=== PATIENT | female | born 1995 | race Two or more races ===

== ENCOUNTER 2025-02-27 13:34 | Outpatient (AMB) | payer BC, SELFPAY ==
[2025-02-27 13:52] VITALS: BP 117/80; PULSE 92; RESP 17; TEMP 36.6; O2SAT 98; BMI 30.2
--- NOTE | 2025-02-27 13:52 | AMB.OBINITIA ---
Vital Signs 02/27/25 13:52 Height 1.57 m Height Method Measured Weight 74.843 kg Weight Measurement Method Standing Scale BMI 30.2 BP 117/80 Blood Pressure Source Automatic Cuff Blood Pressure Location Right Upper Arm Position Sitting Respiration 17 Pulse 92 Pulse Source Monitor Temp 97.8 F Temp Source Temporal Artery Scan Pulse Oximetry (%) 98 Oxygen Delivery Method Room Air Allergies/Home Meds Allergies & Medications Allergies No Known Allergies Allergy (Verified 02/27/25 13:53) Medication Reconciliation vits no.130-ferrous fum 27 mg iron-folic acid 800 mcg tablet ( Vitamin) 1 tab PO QDAY pregancy #60 tabs 02/27/25 [Rx] Intake Visit Data Collection New Patient or Established: New Patient (never been to [facility]) Reason for Visit:: OBI Consent obtained for Telemed Visit: No Seen by Clinical Staff ONLY (RN/MA): No Print Support Specialist Required: No Do You Feel Safe at Home: Yes Authorities Contacted: N/A PCP or OBGYN visit in last 3 months: No Hx Now: Yes Are you currently on any form of Control: No Last menstrual period: 12/17/24 Pain Present Currently: No Pain Scale Used: Mayen-Rebollar/Numerical Pain scale:: 0 Smoking Status Smoking Status: Never smoker Questionnaires Covid-19 Vaccine Questionnaire Has patient been vacinated for Covid-19 Have you been vacinated for Covid-19: Yes PHQ-9 PHQ-2 Over the last 2 weeks, how often have you been bothered by any of the following problems? 1. Little interest or pleasure in doing things: not at all 2. Feeling down, depressed, or hopeless: not at all Total score: 0 PHQ-9 3. Trouble falling or staying asleep, or sleeping too much: Not at all 4. Feeling tired or having little energy: Not at all 5. Poor appetite or overeating: Not at all 6. Feeling bad about yourself - or that you are a failure or have let yourself or your family down: Not at all 7. Trouble concentrating on things, such as reading the newspaper or watching television: Not at all 8. Moving or speaking so slowly that other people could have noticed? - Or the opposite - being so fidgety or restless that you have been moving around a lot more than usual: not at all 9. Thoughts that you would be better off or of hurting yourself in some way: Not at all Total score: 0 If you checked off any problems, how difficult have these problems made it for you to do your work, take care of things at home, or get along with other people?: not difficult at all Source: Developed by Drs. Speedy Mayen, Angélica Stone, Juan Marie and colleagues, with an educational jovani from [employer]. Social History Living Situation History Lives With: Family Housing: House Tobacco History Smoking Status: Never smoker Alcohol History Alcohol Intake: Never Domestic Abuse History Do You Feel Safe at Home: Yes History of Present Illness HPI Narrative 29-year-old 2 para 1 for OBI. Plan . Last period December 17, 2024. Estimated due date September 23, 2025. She has good dates. Both her and partner are happy about the . Patient has had some spotting in early but that stopped. She now has some resolving hyperemesis. Patient was vomiting up to 5 or 6 times a day and she lost 10 pounds. She went into the ER a week ago and was treated with Reglan 10 mg 30 minutes before each meal and then she takes Diclegis at night. And this has been helping her a lot. Denies any history of chronic illness. She has a previous history of vaping marijuana but she stopped that and no surgeries. Denies leaking or cramps at this time. OB Initial Visit OB Flowsheet OB Flowsheet Initial Weight: Not Recorded Date <del>?</del> EGA Weight BP Alb Glu CTX Pres Fundal ht FHR Mov Dilation Station Effacement Hx Notes Visit Note 02/27/25 <del>?</del> 10w 2d 74.843 kg 117/80 absent unknown 10 160 absent 29-year-old 2 para 1 for OBI. Patient's last period December 17, 2024. This gives a due date September 23, 2025. Patient does report low spotting in the first part of but she has had none since. Denies any existing past medical problems. Denies surgeries. She has a history of vaping marijuana prior to beginning the but she stopped. No leaking or bleeding at this time she has hyperemesis with this . She tried Zofran that did not work. She then went to the ER a few weeks ago and they treated her with Reglan to take 30 minutes prior to each meal and then she takes Diclegis at night. This seems to be helping and she is not vomiting anymore. Schedule ultrasound with maternal- medicine. OB panel today with carrier screens and NIPT. Discussed SAB precautions. Discussed comfort measures for nausea and vomiting. And patient should continue with Reglan 10 mg prior to each meal and then her Diclegis at night. I ordered vitamins. Return in 3 weeks OB check Menstrual History Menstrual reliability: approximate (month known) Flow: normal Menstrual regularity: irregular Monthly: Yes Age at menarche: 17 On control pills at conception: No Date of positive home test: 01/21/25 OB History : 2 Para: 1 Hx # Pregnancies: 0 Hx Total # of Abortions (Spontaneous & Elective): 0 # of Living Children: 1 Delivery History 1st : Child's name: CLARE date: 05/27/19 sex: female Gestational age at delivery (weeks): 40 Delivery type: vaginal weight (lbs): 3175.147 g History of depression before or after : No Infection History & Risk Evaluation History of STDs: none HIV risk evaluation: low risk Hepatitis B risk evaluation: low risk Patient or partner has history of Genital Herpes: No Genetic Screening & History Genetic Screening/Teratology Counseling - Includes patient, baby's father, or anyone in either family with: 1. Patient's age 35 years or older as of estimated date of delivery: No 2. Thalassemia (Chinese, Bulgarian, Mediterranean, or Background); MCV less than 80: No 3. Neural Tube Defect (Meningomyelocele, Spina Bifida, or Anencephaly): No 4. Congenital Heart Defect: No 5. Down Syndrome: No 6. Jl-Sachs (Ashkenazi Latter Day, Cajun, R[place]an [place]): No 7. Celena Disease (Ashkenazi Latter Day): No 8. Familial Dysautonomia (Ashkenazi Latter Day): No 9. Sickle Cell Disease or Trait (): No 10. Hemophilia or other blood disorders: No 11. Muscular Dystrophy: No 12. Cystic Fibrosis: No 13. Stratford's Chorea: No 14. Mental Retardation/Autism: No 15. Other inherited genetic or chromosomal disorder: No 16. Maternal Metabolic Disorder (EG,TYPE 1 Diabetes, PKU): No 17. Patient or baby's father had a child with defects not listed above: No 18. Recurrent loss or a stillbirth: No 19. Medications (including supplements, vitamins, herbs or otc drugs)/illicit/recreational drugs/alcohol since last menstrual period: No 20. Any other: No Infection History 1. Live with someone with TB or exposed to TB: No 2. Rash or viral illness since last menstrual period: No 3. Hepatitis B,C: No Other (see comments) Source: [employer] Review of Systems Review of Systems Systems Reviewed: All systems reviewed, normal except as documented Exam General Limitations: no limitations General Appearance: alert, in no apparent distress, comfortable, cooperative, healthy appearing, well developed and well groomed Head Head exam: atraumatic, normocephalic and normal inspection Chest Chest inspection: Present normal inspection and symmetric chest wall rise Resp Respiratory exam: Present normal lung sounds bilaterally Card Cardiovascular exam: Present regular rate, normal rhythm and normal heart sounds Abdominal Abdominal exam: Present soft and normal bowel sounds Psych Psychiatric exam: Present normal affect and normal mood Office Procedures OB Clinic LOC & Office Proc's Nursing/Assessment Patient Status: Initial/New Patient OB Clinic Nursing Assessment: Medication Reconciliation, Update PMH in EMR and Vital Signs OB Clinic Coordination of Care: Complex Care and Chronic Disease 1-5, Consent,records obtained, informed consent, Education Simp Pt/Fam and 4+ Authorizations needed Special Needs: Heart tones New Patient Charge New Patient Point Assignment: [id number] New Patient Point Charge: ACTING MANAGER Level 4 (8953-4261) Assessment & Plan Diagnosis / Problem List (1) Encounter for supervision of high risk in first trimester, antepartum: Status: Acute (2) : Status: Acute Plan schedule mFM scan, sab precaution, comfort measure for N/V, continue Reglan 10 mg 30min prior to meal and Diclegesis at HS. discussed other comfort measures to try. order PNV. OB panel and nipt with carrier screen today at [facility]. rtc 3 week obc Additional Plan Follow Up: 3 Weeks (obc)
== END 2025-02-27 14:10 | disposition home or self-care (01) ==
LOC: HODSOBC 13:34
PROVIDERS: Supervising Provider Advanced Practice Midwife; Visit Provider Advanced Practice Midwife
DX: O09.891 Supervision of other high risk pregnancies, first trimester (principal); O21.0 Mild hyperemesis gravidarum; Z3A.10 10 weeks gestation of pregnancy
CPT/HCPCS: 99204; G0463

== ENCOUNTER 2025-03-27 12:56 | Outpatient (AMB) | payer BC, SELFPAY ==
[2025-03-27 13:04] VITALS: BP 123/85; PULSE 104; RESP 20; TEMP 36.7; O2SAT 98; BMI 29.7
--- NOTE | 2025-03-27 13:04 | OBCLNT_ITS ---
Vital Signs 03/27/25 13:04 Height 1.57 m Height Method Stated Weight 73.198 kg Weight Measurement Method Standing Scale BMI 29.7 BP 123/85 H Blood Pressure Source Automatic Cuff Blood Pressure Location Left Upper Arm Position Sitting Respiration 20 Pulse 104 H Pulse Source Monitor Temp 98.1 F Temp Source Oral Pulse Oximetry (%) 98 Oxygen Delivery Method Room Air Allergies/Home Meds Allergies & Medications Allergies No Known Allergies Allergy (Verified 03/27/25 13:05) Medication Reconciliation vits no.130-ferrous fum 27 mg iron-folic acid 800 mcg tablet ( Vitamin) 1 tab PO QDAY pregancy #60 tabs 02/27/25 [Rx Confirmed 03/27/25] doxylamine 10 mg-pyridoxine (vit B6) 10 mg tablet,delayed release (Diclegis) 1 tab PO BID 30 days #60 tabs 03/27/25 [Rx] metoclopramide HCl 5 mg tablet (Reglan) 5 mg PO QDAY #30 tabs 03/27/25 [Rx] Intake Visit Data Collection New Patient or Established: Established Patient (seen at [facility] within 3 years) Reason for Visit:: CARE Seen by Clinical Staff ONLY (RN/MA): No Social Media Specialist Required: No Do You Feel Safe at Home: Yes Authorities Contacted: N/A PCP or OBGYN visit in last 3 months: Yes Hx Now: Yes Are you currently on any form of Control: No Pain Present Currently: No Pain Scale Used: Mayen-Rebollar/Numerical Pain scale:: 0 Smoking Status Smoking Status: Never smoker Questionnaires Covid-19 Vaccine Questionnaire Has patient been vacinated for Covid-19 Have you been vacinated for Covid-19: Yes PHQ-9 PHQ-2 Over the last 2 weeks, how often have you been bothered by any of the following problems? 1. Little interest or pleasure in doing things: not at all 2. Feeling down, depressed, or hopeless: not at all Total score: 0 PHQ-9 3. Trouble falling or staying asleep, or sleeping too much: Not at all 4. Feeling tired or having little energy: Not at all 5. Poor appetite or overeating: Not at all 6. Feeling bad about yourself - or that you are a failure or have let yourself or your family down: Not at all 7. Trouble concentrating on things, such as reading the newspaper or watching television: Not at all 8. Moving or speaking so slowly that other people could have noticed? - Or the opposite - being so fidgety or restless that you have been moving around a lot more than usual: not at all 9. Thoughts that you would be better off or of hurting yourself in some way: Not at all Total score: 0 Source: Developed by Drs. Speedy Mayen, Angélica Stone, Juan Marie and colleagues, with an educational jovani from [employer]. Depression screen completed yes Social History Living Situation History Lives With: Family Housing: House Tobacco History Smoking Status: Never smoker Alcohol History Alcohol Intake: Never Domestic Abuse History Do You Feel Safe at Home: Yes Care OB Visit Log OB Flowsheet Initial Weight: Not Recorded Date -?-?-?-?-?-?-?--?-?-?-?-?- EGA Weight BP Alb Glu CTX Pres Fundal ht FHR Mov Dilation Station Effacement Hx Notes Visit Note 02/27/25 -?-?-?-?-?-?-?-?-?-?-?-?- 10w 2d 74.843 kg 117/80 absent unknown 10 160 absent 29-year-old 2 para 1 for OBI. Patient's last period December 17, 2024. This gives a due date September 23, 2025. Patient does report low spotting in the first part of but she has had none since. Denies any existing past medical problems. Denies surgeries. She has a history of vaping marijuana prior to beginning the but she stopped. No leaking or bleeding at this time she has hyperemesis with this . She tried Zofran that did not work. She then went to the ER a few weeks ago and they treated her with Reglan to take 30 minutes prior to each meal and then she takes Diclegis at night. This seems to be helping and she is not vomiting anymore. Schedule ultrasound with maternal- medicine. OB panel today with carrier screens and NIPT. Discussed SAB precautions. Discussed comfort measures for nausea and vomiting. And patient should continue with Reglan 10 mg prior to each meal and then her Diclegis at night. I ordered vitamins. Return in 3 weeks OB check 03/27/25 -?-?-?-?-?-?-?-?-?-?-?-?- 14w 2d 73.198 kg 123/85 absent unknown 14 154 absent Increased nausea and vomiting. Patient was refilled the Diclegis. Light movement. MFM pending. Patient did not get labs drawn Advised patient to get labs drawn as soon as possible. Will follow-up on MFM referral. Discussed comfort measures for nausea and vomiting. Refilled Diclegis. Discussed SAB precautions. Return in 4 weeks OB check Advised patient to get labs drawn as soon as possible. Will follow-up on MFM referral. Discussed comfort measures for nausea and vomiting. Refilled Diclegis 10 mg BID and reglan 5 mg q day. OK to split Diclegis in half Discus sed SAB precautions. Return in 4 weeks OB check OFELIA Calculator Estimated Delivery Date Method Current WG Current Estimate 09/23/25 LMP (Certain) 14w 2d Notes Visit Date: 02/27/25 Last Updated by: Natalie Ordoñez CNM 29 yo LMP 12/17/24. EDC : 09/23/25 Office Procedures OB Clinic LOC & Office Proc's Nursing/Assessment Patient Status: Established Patient OB Clinic Nursing Assessment: Medication Reconciliation, Update PMH in EMR and Vital Signs OB Clinic Coordination of Care: Complex Care and Chronic Disease 1-5, Consent,records obtained, informed consent, Education Simp Pt/Fam, Lab and Imaging orders, Results/Orders obtained and Staff clarify orders Special Needs: Heart tones Established Patient Charge Established Patient Point Assignment: 135 Established Patient Point Charge: EP Level 4 (120-155) Assessment & Plan Diagnosis / Problem List (1) Encounter for supervision of normal in multigravida in second trimester: Status: Acute Plan Continue comfort measures for nausea and vomiting. Refilled Diclegis 10 mg twice daily. It is okay for patient to take half dose. And I also refilled Reglan 5 mg daily. Discussed SAB precautions. I advised patient to please get her labs drawn. And MFM appointment with Dr. Peralta is pending. Return in 4 weeks at which Additional Plan Follow Up: 4 Weeks (OBC)
== END 2025-03-27 13:17 | disposition home or self-care (01) ==
LOC: HODSOBC 12:56
PROVIDERS: Supervising Provider Advanced Practice Midwife; Visit Provider Advanced Practice Midwife
DX: O09.892 Supervision of other high risk pregnancies, second trimester (principal); O21.9 Vomiting of pregnancy, unspecified; Z3A.14 14 weeks gestation of pregnancy
CPT/HCPCS: 99214; G0463

== ENCOUNTER 2025-04-30 13:31 | Outpatient (AMB) | payer BC, SELFPAY ==
--- NOTE | 2025-04-30 13:47 | OBCLNT_ITS ---
Vital Signs 04/30/25 13:48 Height 1.57 m Height Method Measured Weight 77.791 kg Weight Measurement Method Standing Scale BMI 31.5 BP 121/87 H Blood Pressure Source Automatic Cuff Blood Pressure Location Right Upper Arm Position Sitting Respiration 17 Pulse 107 H Pulse Source Monitor Temp 97.7 F Temp Source Temporal Artery Scan Pulse Oximetry (%) 98 Oxygen Delivery Method Room Air Allergies/Home Meds Allergies & Medications Allergies No Known Allergies Allergy (Verified 03/27/25 13:05) Intake Visit Data Collection New Patient or Established: Established Patient (seen at [facility] within 3 years) Reason for Visit:: OBC FOLLOW UP Search Analyst Required: No Do You Feel Safe at Home: Yes Authorities Contacted: N/A PCP or OBGYN visit in last 3 months: Yes Date of Last PCP or OBGYN visit: 03/27/25 Hx Now: Yes Pain Present Currently: No Smoking Status Smoking Status: Never smoker Questionnaires PHQ-9 PHQ-2 Over the last 2 weeks, how often have you been bothered by any of the following problems? 1. Little interest or pleasure in doing things: not at all PHQ-9 8. Moving or speaking so slowly that other people could have noticed? - Or the opposite - being so fidgety or restless that you have been moving around a lot more than usual: not at all Source: Developed by Drs. Speedy Mayen, Angélica Stone, Juan Marie and colleagues, with an educational jovani from [employer]. Social History Living Situation History Lives With: Family Housing: House Tobacco History Smoking Status: Never smoker Alcohol History Alcohol Intake: Never Domestic Abuse History Do You Feel Safe at Home: Yes Care OB Visit Log OB Flowsheet Initial Weight: Not Recorded Date -?-?-?-?-?-?-?-?-?-?-?-?- EGA Weight BP Alb Glu CTX Pres Fundal ht FHR Mov Dilation Station Effacement Hx Notes Visit Note 02/27/25 -?-?-?-?-?-?-?-?-?-?-?-?- 10w 2d 74.843 kg 117/80 absent unknown 10 160 absent 29-year-old 2 para 1 for OBI. Patient's last period December 17, 2024. This gives a due date September 23, 2025. Patient does report low spotting in the first part of but she has had none since. Denies any existing past medical problems. Denies surgeries. She has a history of vaping marijuana prior to beginning the but she stopped. No leaking or bleeding at this time she has hyperemesis with this . She tried Zofran that did not work. She then went to the ER a few weeks ago and they treated her with Reglan to take 30 minutes prior to each meal and then she takes Diclegis at night. This seems to be helping and she is not vomiting anymore. Schedule ultrasound with maternal- medicine. OB panel today with carrier screens and NIPT. Discussed SAB precautions. Discussed comfort measures for nausea and vomiting. And patient should continue with Reglan 10 mg prior to each meal and then her Diclegis at night. I ordered vitamins. Return in 3 weeks OB check 03/27/25 -?-?-?-?-?-?-?-?-?-?-?-?- 14w 2d 73.198 kg 123/85 absent unknown 14 154 absent Increased nausea and vomiting. Patient was refilled the Diclegis. Light movement. MFM pending. Patient did not get labs drawn Advised patient to get labs drawn as soon as possible. Will follow-up on MFM referral. Discussed comfort measures for nausea and vomiting. Refilled Diclegis. Discussed SAB precautions. Return in 4 weeks OB check Advised patient to get labs drawn as soon as possible. Will follow-up on MFM referral. Discussed comfort measures for nausea and vomiting. Refilled Diclegis 10 mg BID and reglan 5 mg q day. OK to split Diclegis in half Discussed SAB precautions. Return in 4 weeks OB check 04/30/25 -?-?-?-?-?-?-?-?-?-?-?-?- 19w 1d 77.791 kg 121/87 absent unknown 19 145 absent Nausea and vomiting improved. Reports movement. Denies cramping, denies bleeding, denies leaking aFP today. MFM appointment pending. Discussed labor precaution s. Continue treatment prenatals. Increase fluids. Return in 4 weeks OB check aFP today. MFM appointment pending. Discussed labor precautions. Continue treatment prenatals. Increase fluids. Return in 4 weeks OB check, schedule OB sono for dates at [facility] Calculator Estimated Delivery Date Method Current WG Current Estimate 09/23/25 LMP (Certain) 19w 1d Notes Visit Date: 04/30/25 Last Updated by: Natalie Ordoñez CNM OB panel: rub NI, HBSAG-, HIV-, HC-, O+,abs-, RPR::NR, GC/CT-, /, NIPT-/male, CF/SMA- Visit Date: 02/27/25 Last Updated by: Natalie Ordoñez CNM 29 yo LMP 12/17/24. EDC : 09/23/25 Office Procedures OBC Clinic LOC & Office Proc's Nursing/Assessment Patient Status: Established Patient OB Clinic Nursing Assessment: Medication Reconciliation, Update PMH in EMR and Vital Signs OB Clinic Coordination of Care: Complex Care and Chronic Disease 1-5, Education Complex Pt/Fam, Consent,records obtained, informed consent, 4+ Authorizations needed, Lab and Imaging orders and Results/Orders obtained Special Needs: Heart tones Established Patient Charge Established Patient Point Assignment: 155 Established Patient Point Charge: EP Level 4 (120-155) Assessment & Plan Diagnosis / Problem List (1) Encounter for supervision of normal in multigravida in second trimester: Status: Acute Plan aFP today. MFM appointment pending. Discussed labs. Continue prenatals. Increase fluids. Reviewed labor precautions. Return in 4 weeks OB check. schedule OB sono at [facility] Additional Plan Follow Up: 4 Weeks (obc)
[2025-04-30 13:48] VITALS: BP 121/87; PULSE 107; RESP 17; TEMP 36.5; O2SAT 98; BMI 31.5
== END 2025-04-30 14:33 | disposition home or self-care (01) ==
LOC: HODSOBC 13:31
PROVIDERS: Supervising Provider Advanced Practice Midwife; Visit Provider Advanced Practice Midwife
DX: Z34.82 Encounter for supervision of other normal pregnancy, second trimester (principal); Z3A.19 19 weeks gestation of pregnancy
CPT/HCPCS: 99214; G0463

== ENCOUNTER → 2025-05-21 | Outpatient (CLI) | payer BC, SELFPAY ==
--- NOTE | 2025-05-21 16:00 | XR_ITS ---
Examination: Complete OB ultrasound greater than 14 weeks Date and time of exam: May 21, 2025, 1456 hours INDICATIONS: Size and dates discrepancy Findings: Viable intrauterine single fetus with single amniotic sac presentation cephalic Cardiac motion 148 bpm Placenta posterior grade 1 Umbilical cord insertion 3 vessels seen Amniotic fluid normal spine maternal left. Cervix 3.1 cm Right ovary 3.6 cm arterial flow Left ovary 3.2 cm arterial flow 11 mm follicle. Composite estimated gestational age based on BPD, head circumference, abdominal circumference, femur length is 22 weeks 0 days Estimated weight 475 g Survey of intracranial anatomy, spinal anatomy, abdominal anatomy, four-chamber heart performed with no abnormalities identified. Impression: Viable intrauterine gestation in cephalic presentation.
== END | disposition home or self-care (01) ==
PROVIDERS: PCP Advanced Practice Midwife; Referring Provider Advanced Practice Midwife; Visit Provider Advanced Practice Midwife
DX: O26.842 Uterine size-date discrepancy, second trimester (principal); Z3A.22 22 weeks gestation of pregnancy
CPT/HCPCS: 76805

== ENCOUNTER 2025-06-04 14:49 | Outpatient (AMB) | payer BC, SELFPAY ==
--- NOTE | 2025-06-04 15:00 | AMB.OBVISIT ---
Vital Signs 06/04/25 15:01 Height 1.57 m Height Method Stated Weight 82.554 kg Weight Measurement Method Standing Scale BMI 33.5 BP 120/81 Blood Pressure Source Automatic Cuff Blood Pressure Location Left Upper Arm Position Sitting Respiration 18 Pulse 105 H Pulse Source Monitor Temp 97.4 F Temp Source Oral Pulse Oximetry (%) 98 Oxygen Delivery Method Room Air Allergies/Home Meds Allergies & Medications Allergies No Known Allergies Allergy (Verified 06/04/25 15:02) Medication Reconciliation vits no.130-ferrous fum 27 mg iron-folic acid 800 mcg tablet ( Vitamin) 1 tab PO QDAY pregancy #60 tabs 02/27/25 [Rx Confirmed 06/04/25] doxylamine 10 mg-pyridoxine (vit B6) 10 mg tablet,delayed release (Diclegis) 1 tab PO BID 30 days #60 tabs 03/27/25 [Rx Confirmed 06/04/25] metoclopramide HCl 5 mg tablet (Reglan) 5 mg PO QDAY #30 tabs 03/27/25 [Rx Confirmed 06/04/25] Intake Visit Data Collection New Patient or Established: Established Patient (seen at [facility] within 3 years) Reason for Visit:: CARE Seen by Clinical Staff ONLY (RN/MA): No Carriage Rider Required: Yes Do You Feel Safe at Home: Yes Authorities Contacted: N/A PCP or OBGYN visit in last 3 months: Yes Hx Now: Yes Are you currently on any form of Control: No Pain Present Currently: No Pain Scale Used: Mayen-Rebollar/Numerical Pain scale:: 0 Smoking Status Smoking Status: Never smoker Immunizations Flu Vaccine in the Last 12 Months: No Flu Vaccine Exclusion Criteria: Refused by Patient Questionnaires Covid-19 Vaccine Questionnaire Has patient been vacinated for Covid-19 Have you been vacinated for Covid-19: Yes PHQ-9 PHQ-2 Over the last 2 weeks, how often have you been bothered by any of the following problems? 1. Little interest or pleasure in doing things: not at all 2. Feeling down, depressed, or hopeless: not at all Total score: 0 PHQ-9 3. Trouble falling or staying asleep, or sleeping too much: Not at all 4. Feeling tired or having little energy: Not at all 5. Poor appetite or overeating: Not at all 6. Feeling bad about yourself - or that you are a failure or have let yourself or your family down: Not at all 7. Trouble concentrating on things, such as reading the newspaper or watching television: Not at all 8. Moving or speaking so slowly that other people could have noticed? - Or the opposite - being so fidgety or restless that you have been moving around a lot more than usual: not at all 9. Thoughts that you would be better off or of hurting yourself in some way: Not at all Total score: 0 Source: Developed by Drs. Speedy Mayen, Angélica Stone, Juan Marie and colleagues, with an educational jovani from [employer]. Depression screen completed yes Social History Living Situation History Lives With: Family Housing: House Tobacco History Smoking Status: Never smoker Alcohol History Alcohol Intake: Never Domestic Abuse History Do You Feel Safe at Home: Yes Care OB Visit Log OB Flowsheet Initial Weight: Not Recorded Date <del>?</del> EGA Weight BP Alb Glu CTX Pres Fundal ht FHR Mov Dilation Station Effacement Hx Notes Visit Note 02/27/25 <del>?</del> 10w 2d 74.843 kg 117/80 absent unknown 10 160 absent 29-year-old 2 para 1 for OBI. Patient's last period December 17, 2024. This gives a due date September 23, 2025. Patient does report low spotting in the first part of but she has had none since. Denies any existing past medical problems. Denies surgeries. She has a history of vaping marijuana prior to beginning the but she stopped. No leaking or bleeding at this time she has hyperemesis with this . She tried Zofran that did not work. She then went to the ER a few weeks ago and they treated her with Reglan to take 30 minutes prior to each meal and then she takes Diclegis at night. This seems to be helping and she is not vomiting anymore. Schedule ultrasound with maternal- medicine. OB panel today with carrier screens and NIPT. Discussed SAB precautions. Discussed comfort measures for nausea and vomiting. And patient should continue with Reglan 10 mg prior to each meal and then her Diclegis at night. I ordered vitamins. Return in 3 weeks OB check 03/27/25 <del>?</del> 14w 2d 73.198 kg 123/85 absent unknown 14 154 absent Increased nausea and vomiting. Patient was refilled the Diclegis. Light movement. MFM pending. Patient did not get labs drawn Advised patient to get labs drawn as soon as possible. Will follow-up on MFM referral. Discussed comfort measures for nausea and vomiting. Refilled Diclegis. Discussed SAB precautions. Return in 4 weeks OB check Advised patient to get labs drawn as soon as possible. Will follow-up on MFM referral. Discussed comfort measures for nausea and vomiting. Refilled Diclegis 10 mg BID and reglan 5 mg q day. OK to split Diclegis in half Discussed SAB precautions. Return in 4 weeks OB check 04/30/25 <del>?</del> 19w 1d 77.791 kg 121/87 absent unknown 19 145 absent Nausea and vomiting improved. Reports movement. Denies cramping, denies bleeding, denies leaking aFP today. MFM appointment pending. Discussed labor precautions. Continue treatment prenatals. Increase fluids. Return in 4 weeks OB check aFP today. MFM appointment pending. Discussed labor precautions. Continue treatment prenatals. Increase fluids. Return in 4 weeks OB check, schedule [place] [facility] [place] <del>?</del> 24w 1d 82.554 kg 120/81 absent unknown 24 145 absent Nausea and vomiting improved. Patient did her AFP today. She did not know that she should not do it after 20 weeks. Reports good movement. Denies leaking, bleeding, contractions. Patient has her ultrasound at [facility] in [place] June 26 Discussed AFP and the possibility of it being abnormal because it was drawn late. Follow-up with [facility] June 26. I gave patient lab slip for third trimester labs. Discussed diet and weight and labor precautions return in 4 weeks OB check OFELIA Calculator Estimated Delivery Date Method Current WG Current Estimate 09/23/25 LMP (Certain) 24w 1d Other Estimates 09/24/25 Ultrasound #1 24w 0d Notes Visit Date: 04/30/25 Last Updated by: Natalie Ordoñez CNM OB panel: rub NI, HBSAG-, HIV-, HC-, O+,abs-, RPR::NR, GC/CT-, /, NIPT-/male, CF/SMA- Visit Date: 02/27/25 Last Updated by: Natalie Ordoñez CNM 29 yo LMP 12/17/24. EDC : 09/23/25 Office Procedures OBC Clinic LOC & Office Proc's Nursing/Assessment Patient Status: Established Patient OB Clinic Nursing Assessment: Medication Reconciliation, Update PMH in EMR and Vital Signs OB Clinic Coordination of Care: Complex Care and Chronic Disease 1-5, Consent,records obtained, informed consent, Education Simp Pt/Fam, 1 Ins Authorization, Lab and Imaging orders, Results/Orders obtained and Staff clarify orders Special Needs: Heart tones Established Patient Charge Established Patient Point Assignment: 150 Established Patient Point Charge: EP Level 4 (120-155) Assessment & Plan Diagnosis / Problem List (1) Encounter for supervision of normal in multigravida in second trimester: Status: Acute Plan Third trimester labs. We discussed the possibility of her AFP being abnormal because it was drawn after 24 weeks. Keep appointment with maternal- medicine in [place] June 26. Discussed labor precautions. Discussed diet. Discussed comfort measures for constipation and lttu-ert-dlikkys meds. Return in 4 weeks OB check Additional Plan Follow Up: 4 Weeks (obc)
[2025-06-04 15:01] VITALS: BP 120/81; PULSE 105; RESP 18; TEMP 36.3; O2SAT 98; BMI 33.5
== END 2025-06-04 15:46 | disposition home or self-care (01) ==
LOC: HODSOBC 14:49
PROVIDERS: Supervising Provider Advanced Practice Midwife; Visit Provider Advanced Practice Midwife
DX: Z34.82 Encounter for supervision of other normal pregnancy, second trimester (principal); Z3A.24 24 weeks gestation of pregnancy
CPT/HCPCS: 99214; G0463

== ENCOUNTER 2025-07-02 14:52 | Outpatient (AMB) | payer BC, SELFPAY ==
--- NOTE | 2025-07-02 14:56 | AMB.OBPNC ---
Vital Signs 07/02/25 15:02 Height 1.57 m Height Method Stated Weight 88.451 kg Weight Measurement Method Standing Scale BMI 35.9 BP 128/86 H Blood Pressure Source Automatic Cuff Blood Pressure Location Left Upper Arm Position Sitting Respiration 18 Pulse 98 Pulse Source Monitor Temp 97.8 F Temp Source Oral Pulse Oximetry (%) 98 Oxygen Delivery Method Room Air Allergies/Home Meds Allergies & Medications Allergies No Known Allergies Allergy (Verified 07/02/25 14:56) Medication Reconciliation vits no.130-ferrous fum 27 mg iron-folic acid 800 mcg tablet ( Vitamin) 1 tab PO QDAY pregancy #60 tabs 02/27/25 [Rx Confirmed 07/02/25] doxylamine 10 mg-pyridoxine (vit B6) 10 mg tablet,delayed release (Diclegis) 1 tab PO BID 30 days #60 tabs 03/27/25 [Rx Confirmed 07/02/25] metoclopramide HCl 5 mg tablet (Reglan) 5 mg PO QDAY #30 tabs 03/27/25 [Rx Confirmed 07/02/25] Immunizations Immunizations Flu Vaccine in the Last 12 Months: No Flu Vaccine Exclusion Criteria: No Exclusion Criteria Care OB Visit Log OB Flowsheet Initial Weight: Not Recorded Date <del>?</del> EGA Weight BP Alb Glu CTX Pres Fundal ht FHR Mov Dilation Station Effacement Hx Notes Visit Note 02/27/25 <del>?</del> 10w 2d 74.843 kg 117/80 absent unknown 10 160 absent 29-year-old 2 para 1 for OBI. Patient's last period December 17, 2024. This gives a due date September 23, 2025. Patient does report low spotting in the first part of but she has had none since. Denies any existing past medical problems. Denies surgeries. She has a history of vaping marijuana prior to beginning the but she stopped. No leaking or bleeding at this time she has hyperemesis with this . She tried Zofran that did not work. She then went to the ER a few weeks ago and they treated her with Reglan to take 30 minutes prior to each meal and then she takes Diclegis at night. This seems to be helping and she is not vomiting anymore. Schedule ultrasound with maternal- medicine. OB panel today with carrier screens and NIPT. Discussed SAB precautions. Discussed comfort measures for nausea and vomiting. And patient should continue with Reglan 10 mg prior to each meal and then her Diclegis at night. I ordered vitamins. Return in 3 weeks OB check 03/27/25 <del>?</del> 14w 2d 73.198 kg 123/85 absent unknown 14 154 absent Increased nausea and vomiting. Patient was refilled the Diclegis. Light movement. MFM pending. Patient did not get labs drawn Advised patient to get labs drawn as soon as possible. Will follow-up on MFM referral. Discussed comfort measures for nausea and vomiting. Refilled Diclegis. Discussed SAB precautions. Return in 4 weeks OB check Advised patient to get labs drawn as soon as possible. Will follow-up on MFM referral. Discussed comfort measures for nausea and vomiting. Refilled Diclegis 10 mg BID and reglan 5 mg q day. OK to split Diclegis in half Discussed SAB precautions. Return in 4 weeks OB check 04/30/25 <del>?</del> 19w 1d 77.791 kg 121/87 absent unknown 19 145 absent Nausea and vomiting improved. Reports movement. Denies cramping, denies bleeding, denies leaking aFP today. MFM appointment pending. Discussed labor precautions. Continue treatment prenatals. Increase fluids. Return in 4 weeks OB check aFP today. MFM appointment pending. Discussed labor precautions. Continue treatment prenatals. Increase fluids. Return in 4 weeks OB check, schedule OB sono for dates at [facility] [place]04[place] <del>?</del> 24w 1d 82.554 kg 120/81 absent unknown 24 145 absent Nausea and vomiting improved. Patient did her AFP today. She did not know that she should not do it after 20 weeks. Reports good movement. Denies leaking, bleeding, contractions. Patient has her ultrasound at [facility] in [place] June 26 Discussed AFP and the possibility of it being abnormal because it was drawn late. Follow-up with [facility] June 26. I gave patient lab slip for third trimester labs. Discussed diet and weight and labor precautions return in 4 weeks OB check 07/02/25 <del>?</del> 28w 1d 88.451 kg 128/86 absent unknown 28 145 active Nausea and vomiting improved. Reports movement. Denies leaking bleeding or contractions Third trimester labs were normal. Discussed labor precautions. Increase fluids. Continue prenatals. Return in 3 weeks OB to OFELIA Calculator Estimated Delivery Date Method Current WG Current Estimate 09/23/25 LMP (Certain) 28w 1d Other Estimates 09/24/25 Ultrasound #1 28w 0d 09/23/25 Ultrasound #2 28w 1d 09/23/25 Manual 28w 1d final ofelia: 09/23/25. 46% Notes Visit Date: 07/02/25 Last Updated by: Natalie Ordoñez CNM 3rd tri labs wnl. AFP was drawn late and not ran Visit Date: 04/30/25 Last Updated by: Natalie Ordoñez CNM OB panel: rub NI, HBSAG-, HIV-, HC-, O+,abs-, RPR::NR, GC/CT-, /333, NIPT-/male, CF/SMA- Visit Date: 02/27/25 Last Updated by: Natalie Ordoñez CNM 29 yo LMP 12/17/24. EDC : 09/23/25 Office Procedures OBC Clinic LOC & Office Proc's Nursing/Assessment Patient Status: Established Patient OB Clinic Nursing Assessment: Medication Reconciliation, Update PMH in EMR and Vital Signs OB Clinic Coordination of Care: Consent,records obtained, informed consent, Education Simp Pt/Fam, Lab and Imaging orders, Results/Orders obtained and Staff clarify orders Special Needs: Heart tones Established Patient Charge Established Patient Point Assignment: 110 Established Patient Point Charge: EP Level 3 (80-115) Assessment & Plan Diagnosis / Problem List (1) Encounter for supervision of normal in multigravida in second trimester: Status: Acute Plan precautions reviewed. Increase fluids. Continue vitamins. Return in 3 weeks OB check Additional Plan Follow Up: 3 Weeks (obc)
[2025-07-02 15:02] VITALS: BP 128/86; PULSE 98; RESP 18; TEMP 36.6; O2SAT 98; BMI 35.9
== END 2025-07-02 15:11 | disposition home or self-care (01) ==
LOC: HODSOBC 14:52
PROVIDERS: Supervising Provider Advanced Practice Midwife; Visit Provider Advanced Practice Midwife
DX: Z34.83 Encounter for supervision of other normal pregnancy, third trimester (principal); Z3A.28 28 weeks gestation of pregnancy
CPT/HCPCS: 99213; G0463

== ENCOUNTER 2025-07-19 11:19 | Outpatient (AMB) | payer BC, SELFPAY ==
[2025-07-19 11:31] VITALS: BP 123/73; PULSE 106; RESP 18; TEMP 36.3; O2SAT 98; BMI 36.8
--- NOTE | 2025-07-19 11:31 | OBCLNT_ITS ---
Vital Signs 07/19/25 11:31 Height 1.57 m Height Method Stated Weight 90.718 kg Weight Measurement Method Standing Scale BMI 36.8 BP 123/73 Blood Pressure Source Automatic Cuff Blood Pressure Location Right Upper Arm Position Sitting Respiration 18 Pulse 106 H Pulse Source Monitor Temp 97.4 F Temp Source Temporal Artery Scan Pulse Oximetry (%) 98 Oxygen Delivery Method Room Air Allergies/Home Meds Allergies & Medications Allergies No Known Allergies Allergy (Verified 07/19/25 11:32) Medication Reconciliation vits no.130-ferrous fum 27 mg iron-folic acid 800 mcg tablet ( Vitamin) 1 tab PO QDAY pregancy #60 tabs 02/27/25 [Rx Confirmed 07/19/25] doxylamine 10 mg-pyridoxine (vit B6) 10 mg tablet,delayed release (Diclegis) 1 tab PO BID 30 days #60 tabs 03/27/25 [Rx Confirmed 07/19/25] metoclopramide HCl 5 mg tablet (Reglan) 5 mg PO QDAY #30 tabs 03/27/25 [Rx Confirmed 07/19/25] Immunizations Immunizations Flu Vaccine in the Last 12 Months: No Flu Vaccine Exclusion Criteria: No Exclusion Criteria Care OB Visit Log OB Flowsheet Initial Weight: Not Recorded Date -?-?-?-?-?-?-?-?-?-?-?-?- EGA Weight BP Alb Glu CTX Pres Fundal ht FHR Mov Dilation Station Effacement Hx Notes Visit Note 02/27/25 -?-?-?-?-?-?-?-?-?-?-?-?- 10w 2d 74.843 kg 117/80 absent unknown 10 160 absent 29-year-old 2 para 1 for OBI. Patient's last period December 17, 2024. This gives a due date September 23, 2025. Patient does report low spotting in the first part of pre gnancy but she has had none since. Denies any existing past medical problems. Denies surgeries. She has a history of vaping marijuana prior to beginning the but she stopped. No leaking or bleeding at this time she has hyperemesis with this . She tried Zofran that did not work. She then went to the ER a few weeks ago and they treated her with Reglan to take 30 minutes prior to each meal and then she takes Diclegis at night. This seems to be helping and she is not vomiting anymore. Schedule ultrasound with maternal- medicine. OB panel today with carrier screens and NIPT. Discussed SAB precautions. Discussed comfort measures for nausea and vomiting. And patient should continue with Reglan 10 mg prior to each meal and then her Diclegis at night. I ordered vitamins. Return in 3 weeks OB check 03/27/25 -?-?-?-?-?-?-?-?-?-?-?-?- 14w 2d 73.198 kg 123/85 absent unknown 14 154 absent Increased nausea and vomiting. Patient was refilled the Diclegis. Light movement. MFM pending. Patient did not get labs drawn Advised patient to get labs drawn as soon as possible. Will follow-up on MFM referral. Discussed comfort measures for nausea and vomiting. Refilled Diclegis. Discussed SAB precautions. Return in 4 weeks OB check Advised patient to get labs drawn as soon as possible. Will follow-up on MFM referral. Discussed comfort measures for nausea and vomiting. Refilled Diclegis 10 mg BID and reglan 5 mg q day. OK to split Diclegis in half Discussed SAB precautions. Return in 4 weeks OB check 04/30/25 -?-?-?-?-?-?-?-?-?-?-?-?- 19w 1d 77.791 kg 121/87 absent unknown 19 145 absent Nausea and vomiting im proved. Reports movement. Denies cramping, denies bleeding, denies leaking aFP today. MFM appointment pending. Discussed labor precautions. Continue treatment prenatals. Increase fluids. Return in 4 weeks OB check aFP today. MFM appointment pending. Discussed labor precautions. Continue treatment prenatals. Increase fluids. Return in 4 weeks OB check, schedule OB sono for dates at [facility] [place]/04/25 -?-?-?-?-?-?-?-?-?-?-?-?- 24w 1d 82.554 kg 120/81 absent unknown 24 145 absent Nausea and vomiting improved. Patient did her AFP today. She did not know that she should not do it after 20 weeks. Reports good movement. Denies leaking, bleeding, contractions. Patient has her ultrasound at [facility] in [place] June 26 Discussed AFP an d the possibility of it being abnormal because it was drawn late. Follow-up with [facility] June 26. I gave patient lab slip for third trimester labs. Discussed diet and weight and labor precautions return in 4 weeks OB check 07/02/25 -?-?-?-?-?-?-?-?-?-?-?-?- 28w 1d 88.451 kg 128/86 absent unknown 28 145 active Nausea and vomiting improved. Reports movement. Denies leaking bleeding or contractions Third trimester labs were normal. Discussed labor precautions. Increase fluids. Continue prenatals. Return in 3 weeks OB to 07/19/25 -?-?-?-?-?-?-?-?-?-?-?-?- 30w 4d 90.718 kg 123/73 absent unknown 30 155 active - Dari Drake is a female currently seeing Natalie for obstetric care who presents to discuss tubal ligation options. - She is currently with a boy a nd has a 6-year-old daughter from a previous delivered in [place] 6 years ago. - She desires permanent sterilization fo llowing delivery of her current . - She expresses understanding that tubal ligation would be permanent and irreversible with no chance of failure. - She confirms she does not want any mor e children after this . - Her 6-year-old daughter is excited abo ut the upcoming baby but does not comprehend the timing of delivery. - Tubal ligation to be performed laparoscopically at 6 weeks if vaginal delivery occurs - If section is required, tubal ligation will be performed during the procedure - Sterilization consent form to be compl eted and filed - Continue routine care with Yeni werner - Schedule 2-week follow-up appointment with Natalie for August 02 OFELIA Calculator Estimated Delivery Date Method Current WG Current Estimate 09/23/25 LMP (Certain) 30w 4d Other Estimates 09/24/25 Ultrasound #1 30w 3d 09/23/25 Ultrasound #2 30w 4d 09/23/25 Manual 30w 4d final ofelia: 09/23. 46% Notes Visit Date: 07/02/25 Last Updated by: Natalie Ordoñez CNM 3rd tri labs wnl. AFP was drawn late and not ran Visit Date: 04/30/25 Last Updated by: Natalie Ordoñez CNM OB panel: rub NI, HBSAG-, HIV-, HC-, O+,abs-, RPR::NR, GC/CT-, , NIPT-/male, CF/SMA- Visit Date: 02/27/25 Last Updated by: Natalie Ordoñez CNM 29 yo LMP 12/17/24. EDC : 09/23/25 Office Procedures OBC Clinic LOC & Office Proc's Nursing/Assessment Patient Status: Established Patient OB Clinic Nursing Assessment: Medication Reconciliation, Update PMH in EMR and Vital Signs OB Clinic Coordination of Care: Complex Care and Chronic Disease 1-5, Education Complex Pt/Fam, Consent,records obtained, informed consent, Lab and Imaging orders, Results/Orders obtained and Staff clarify orders Special Needs: Heart tones Established Patient Charge Established Patient Point Assignment: 140 Established Patient Point Charge: EP Level 4 (120-155) Assessment & Plan Diagnosis / Problem List (1) Supervision of high risk , unspecified, third trimester: Status: Acute (2) Encounter for sterilization: Status: Acute Plan Plan - Tubal ligation to be performed laparoscopically at 6 weeks if vaginal delivery occurs - If section is required, tubal ligation will be performed during the procedure - Sterilization consent form to be completed and filed - Continue routine care with Natalie - Schedule 2-week follow-up appointment with Natalie for August 02. Progress Reviewed gestational age, growth, and heart rate. heart rate was 138 bpm, which is normal. Planned frequent visits (every 2 weeks until 36 weeks, then weekly). 2. Instructed patient to monitor movements and report decreases immediately. 3. Testing Counseled on routine third-trimester labs per guidelines. Discussed potential need for ultrasound or monitoring based on risk factors. 4. Preeclampsia Precaution Educated on preeclampsia signs: severe headache, vision changes, right upper quadrant pain, sudden swelling. Advised urgent reporting of symptoms and discussed blood pressure monitoring if high risk. 5. Labor Precautions Reviewed labor signs: regular contractions, pelvic pressure, back pain, bleeding, or fluid leakage. Instructed to seek immediate care for these symptoms. 6. Lifestyle and Delivery Preparation Reinforced vitamins, nutrition, and safe activity. Discussed plan, pain management, and . Advised on labor preparation (e.g., hospital bag) and expectations. 7. Psychosocial Support Assessed emotional well-being and offered resources for mental health or parenting support.
== END 2025-07-19 11:55 | disposition home or self-care (01) ==
LOC: HODSOBC 11:19
PROVIDERS: Supervising Provider Obstetrics & Gynecology; Visit Provider Obstetrics & Gynecology
DX: O09.93 Supervision of high risk pregnancy, unspecified, third trimester (principal); Z3A.30 30 weeks gestation of pregnancy
CPT/HCPCS: 99214; G0463

== ENCOUNTER 2025-08-06 15:20 | Outpatient (AMB) | payer BC, SELFPAY ==
--- NOTE | 2025-08-06 15:40 | OBCLNT_ITS ---
Vital Signs 08/06/25 15:41 Height 1.57 m Height Method Stated Weight 92.533 kg Weight Measurement Method Standing Scale BMI 37.5 BP 125/84 Blood Pressure Source Automatic Cuff Blood Pressure Location Left Upper Arm Position Sitting Respiration 18 Pulse 106 H Pulse Source Monitor Temp 97.6 F Temp Source Temporal Artery Scan Pulse Oximetry (%) 98 Oxygen Delivery Method Room Air Allergies/Home Meds Allergies & Medications Allergies No Known Allergies Allergy (Verified 08/06/25 15:42) Medication Reconciliation vits no.130-ferrous fum 27 mg iron-folic acid 800 mcg tablet ( Vitamin) 1 tab PO QDAY pregancy #60 tabs 02/27/25 [Rx Confirmed 08/06/25] doxylamine 10 mg-pyridoxine (vit B6) 10 mg tablet,delayed release (Diclegis) 1 tab PO BID 30 days #60 tabs 03/27/25 [Rx Confirmed 08/06/25] metoclopramide HCl 5 mg tablet (Reglan) 5 mg PO QDAY #30 tabs 03/27/25 [Rx Confirmed 08/06/25] Immunizations Immunizations Flu Vaccine in the Last 12 Months: No Flu Vaccine Exclusion Criteria: No Exclusion Criteria Care OB Visit Log OB Flowsheet Initial Weight: Not Recorded Date -?-?-?-?-?-?-?-?-?-?-?-?- EGA Weight BP Alb Glu CTX Pres Fundal ht FHR Mov Dilation Station Effacement Hx Notes Visit Note 02/27/25 -?-?-?-?-?-?-?-?-?-?-?-?- 10w 2d 74.843 kg 117/80 absent unknown 10 160 absent 29-year-old 2 para 1 for OBI. Patient's last period December 17, 2024. This gives a due date September 23, 2025. Patient does report low spotting in the first part of preg abdoulaye but she has had none since. Denies any existing past medical problems. Denies surgeries. She has a history of vaping marijuana prior to beginning the but she stopped. No leaking or bleeding at this time she has hyperemesis with this . She tried Zofran that did not work. She then went to the ER a few weeks ago and they treated her with Reglan to take 30 minutes prior to each meal and then she takes Diclegis at night. This seems to be helping and she is not vomiting anymore. Schedule ultrasound with maternal- medicine. OB panel today with carrier screens and NIPT. Discussed SAB precautions. Discussed comfort measures for nausea and vomiting. And patient should continue with Reglan 10 mg prior to each meal and then her Diclegis at night. I ordered vitamins. Return in 3 weeks OB check 03/27/25 -?-?-?-?-?-?-?-?-?-?-?-?- 14w 2d 73.198 kg 123/85 absent unknown 14 154 absent Increased nausea and vomiting. Patient was refilled the Diclegis. Light movement. MFM pending. Patient did not get labs drawn Advised patient to get labs drawn as soon as possible. Will follow-up on MFM referral. Discussed comfort measures for nausea and vomiting. Refilled Diclegis. Discussed SAB precautions. Return in 4 weeks OB check Advised patient to get labs drawn as soon as possible. Will follow-up on MFM referral. Discussed comfort measures for nausea and vomiting. Refilled Diclegis 10 mg BID and reglan 5 mg q day. OK to split Diclegis in half Discussed SAB precautions. Return in 4 weeks OB check 04/30/25 -?-?-?-?-?-?-?-?-?-?-?-?- 19w 1d 77.791 kg 121/87 absent unknown 19 145 absent Nausea and vomiting improved. Reports movement. Denies cramping, denies bleeding, denies leaking aFP today. MFM appointment pending. Discussed labor precautions. Continue treatment prenatals. Increase fluids. Return in 4 weeks OB check aFP today. MFM appointment pending. Discussed labor precautions. Continue treatment prenatals. Increase fluids. Return in 4 weeks OB check, [place] [facility] [place] -?-?-?-?-?-?-?-?-?-?-?-?- 24w 1d 82.554 kg 120/81 absent unknown 24 145 absent Nausea and vomiting improved. Patient did her AFP today. She did not know that she should not do it after 20 weeks. Reports good movement. Denies leaking, bleeding, contractions. Patient has her ultrasound at [facility] in [place] June 26 Discussed AFP an d the possibility of it being abnormal because it was drawn late. Follow-up with Rebeca June 26. I gave patient lab slip for third trimester labs. Discussed diet and weight and labor precautions return in 4 weeks OB check 07/02/25 -?-?-?-?-?-?-?-?-?-?-?-?- 28w 1d 88.451 kg 128/86 absent unknown 28 145 active Nausea and vomiting improved. Reports movement. Denies leaking bleeding or contractions Third trimester labs were normal. Discussed labor precautions. Increase fluids. Continue prenatals. Return in 3 weeks OB to 07/19/25 -?-?-?-?-?-?-?-?-?-?-?-?- 30w 4d 90.718 kg 123/73 absent unknown 30 155 active - Dari Drake is a female currently seeing Natalie for obstetric care who presents to discuss tubal ligation options. - She is currently with a boy a nd has a 6-year-old daughter from a previous delivered in [place] 6 years ago. - She desires permanent sterilization fo llowing delivery of her current . - She expresses understanding that tubal ligation would be permanent and irreversible with no chance of failure. - She confirms she does not want any mor e children after this . - Her 6-year-old daughter is excited abo ut the upcoming baby but does not comprehend the timing of delivery. - Tubal ligation to be performed laparoscopically at 6 weeks if vaginal delivery occurs - If section is required, tubal ligation will be performed during the procedure - Sterilization consent form to be compl eted and filed - Continue routine care with Yeni werner - Schedule 2-week follow-up appointment with Natalie for August 02 08/06/25 -?-?-?-?-?-?-?-?-?-?-?-?- 33w 1d 92.533 kg 125/84 absent cephalic 33 155 active Complains of increased back and hip pain. Her pain is low in the sacral area. Patient states she had fallen about 6 years ago and it seems to recur. She was even seen a chiropractor for her hip discomfort and it helped some. Reports good movement. Denies leaking or bleeding. Off work starting August 13, 2025. Patient's last date of work will be August 12, 2025. And she will return to work 6 weeks . Discussed comfort measures for her back pain including patches and position changes Tylenol. GBS next visit. Kick count twice a day. Return in 2 weeks OB check OFELIA Calculator Estimated Delivery Date Method Current WG Current Estimate 09/23/25 LMP (Certain) 33w 1d Other Estimates 09/24/25 Ultrasound #1 33w 0d 09/23/25 Ultrasound #2 33w 1d 09/23/25 Manual 33w 1d final ofelia: 09/23. 46% Notes Visit Date: 07/02/25 Last Updated by: Natalie Ordoñez CNM 3rd tri labs wnl. AFP was drawn late and not ran Visit Date: 04/30/25 Last Updated by: Natalie Ordoñez CNM OB panel: rub NI, HBSAG-, HIV-, HC-, O+,abs-, RPR::NR, GC/CT-, , NIPT-/male, CF/SMA- Visit Date: 02/27/25 Last Updated by: Natalie Ordoñez CNM 29 yo LMP 12/17/24. EDC : 09/23/25 Office Procedures [facility] Clinic LOC & Office Proc's Nursing/Assessment Patient Status: Established Patient OB Clinic Nursing Assessment: Medication Reconciliation, Update PMH in EMR and Vital Signs OB Clinic Coordination of Care: Complex Care and Chronic Disease 1-5, Education Complex Pt/Fam, Consent,records obtained, informed consent, Lab and Imaging orders, Results/Orders obtained and Staff clarify orders Special Needs: Heart tones Established Patient Charge Established Patient Point Assignment: 140 Established Patient Point Charge: EP Level 4 (120-155) Assessment & Plan Diagnosis / Problem List (1) Supervision of high risk , unspecified, third trimester: Status: Acute Plan Off work starting August. Patient's last date of work will be August 12, 2025. GBS next visit. Discussed comfort measures for back and hip pain. Discussed labor precautions. Kick count twice a day. Continue prenatals. Return in 2 weeks OB Additional Plan Follow Up: 2 Weeks (obc)
[2025-08-06 15:41] VITALS: BP 125/84; PULSE 106; RESP 18; TEMP 36.4; O2SAT 98; BMI 37.5
== END 2025-08-06 16:07 | disposition home or self-care (01) ==
LOC: HODSOBC 15:20
PROVIDERS: Supervising Provider Advanced Practice Midwife; Visit Provider Advanced Practice Midwife
DX: O09.893 Supervision of other high risk pregnancies, third trimester (principal); O99.891 Other specified diseases and conditions complicating pregnancy; M25.559 Pain in unspecified hip; M54.9 Dorsalgia, unspecified; Z3A.33 33 weeks gestation of pregnancy
CPT/HCPCS: 99214; G0463